=== PATIENT | female | born 1995 | race Caucasian/White ===

== ENCOUNTER 2020-10-09 06:15 | Day surgery (SDC) | payer OTHER ==
[2020-10-09] MEDS ORDERED: LACTATED RINGERS 1,000 ML IV ONE (06:23)
[2020-10-09 06:51] LABS: HCG UR QUAL NEGATIVE
[2020-10-09] MEDS ORDERED: ceFAZolin 2 GM/50 ML 2 GM/50 ML BAG IV ONE (07:03)
[2020-10-09] MEDS ORDERED: HYDROmorphone 0.5 MG/0.5 ML SYRINGE IVP PRN (07:06)
[2020-10-09] MEDS ORDERED: MORPHINE 2 MG/ML CARPUJECT IVP PRN (07:06)
[2020-10-09] MEDS ORDERED: ATROPINE ABBOJECT 1 MG/10 ML SYRINGE IVP PRN (07:06)
[2020-10-09] MEDS ORDERED: NALOXONE 0.4 MG/ML VIAL IVP PRN (07:06)
[2020-10-09] MEDS ORDERED: ePHEDrine 50 MG/ML VIAL IVP PRN (07:06)
[2020-10-09] MEDS ORDERED: METOCLOPRAMIDE 10 MG/2 ML VIAL IVP PRN (07:06)
[2020-10-09] MEDS ORDERED: ONDANSETRON 4 MG/2 ML VIAL IVP PRN ×2 (07:06→09:26)
[2020-10-09] MEDS ORDERED: fentaNYL 100 MCG/2 ML VIAL IVP PRN (07:06)
--- NOTE | 2020-10-09 07:09 | ANESTHESIA ---
Pre-Anesthesia VS, & Labs - Diagnosis Volar Ganglion Cyst - Procedure Left Volar Ganglion Cystectomy Vital Signs: Temp Pulse Resp BP Pulse Ox 36.2 C L 90 12 113/80 97 10/09/20 06:25 10/09/20 06:25 10/09/20 06:25 10/09/20 06:25 10/09/20 06:25 Height: 5 ft 8 in Weight (kg): 61.7 kg Body Mass Index: 20.7 BMI Classification: Healthy weight - NPO >8 hours - Is Patient ?: No Home Medications and Allergies Home Medications: Ambulatory Orders No Known Home Medications 10/06/20 No Known Home Medications 10/06/20 Allergies/Adverse Reactions: Allergies Allergy/AdvReac Type Severity Reaction Status Date / Time No Known Drug Allergies Allergy Verified 10/06/20 14:31 Anes History & Medical History - Anesthetic History Anesthesia Complications: reports: No previous complications Family history of Anesthesia Complications: Denies Family history of Malignant Hyperthermia: Denies - Medical History Cardiovascular: reports: None Pulmonary: reports: None Gastrointestinal: reports: None Urinary: reports: None Neuro: reports: None Musculoskeletal: reports: None, Other Endocrine/Autoimmune: reports: None Blood Disorders: reports: None Skin: reports: None Smoking Status: Never smoker Psychosocial: reports: No issues indicated History of Cancer?: No - Surgical History Eyes Ears Nose Throat (EENT): Tonsil/Adenoidectomy Gynecologic: Tubal ligation, Other Exam General: Alert, Oriented x3, Cooperative, No acute distress Dental: WNL Mouth Openin Fingerbreadth Neck Mobility: Normal Mallampati classification: I Thyromental Distance: 4-6 cm Respiratory: Lungs clear, Normal breath sounds, No respiratory distress, No accessory muscle use Cardiovascular: Regular rate, Normal S1, Normal S2, No murmurs Mental/Cognitive Status: Alert/Oriented X3, Normal for patient Cognitive Status: Within normal limits Plan Anesthesia Type: General Consent for Procedure(s) Verified and Reviewed: Yes Code Status: Attempt Resuscitation ASA classification: 1-Healthy patient Is this case an emergency?: No
[2020-10-09] MEDS ORDERED: KETOROLAC 30 MG/ML VIAL ONE (07:14)
[2020-10-09] MEDS ORDERED: ONDANSETRON 4 MG/2 ML VIAL ONE (07:14)
[2020-10-09] MEDS ORDERED: DEXAMETHASONE 4 MG/ML VIAL ONE (07:14)
[2020-10-09] MEDS ORDERED: PROPOFOL 200 MG/20 ML VIAL IVP ONE (07:14)
[2020-10-09] MEDS ORDERED: MIDAZOLAM 2 MG/2 ML VIAL ONE (07:29)
[2020-10-09] MEDS ORDERED: BUPIVACAINE 0.5% PF 30 ML VIAL ONE (07:35)
[2020-10-09] MEDS ORDERED: LIDOCAINE-MPF 2% 5 ML VIAL ONE (07:35)
[2020-10-09] MEDS ORDERED: BUPIVACAINE 0.5% PF 30 ML VIAL SUBQ ONE ×2 (07:59→09:01)
[2020-10-09] MEDS ORDERED: LACTATED RINGERS 1,000 ML IV SCH (08:00)
[2020-10-09] MEDS ORDERED: oxyCODONE 5 MG TABLET PO PRN (09:26)
[2020-10-09 10:08] VITALS: BP 100/70
[2020-10-09] MEDS ORDERED: oxyCODONE 5 MG TABLET ONE (10:14)
--- NOTE | 2020-10-09 12:58 | ANESTHESIA POST OP EVALUATION ---
Anesthesia Post Eval - Post Anesthesia Eval Vitals: Last Vital Signs Temp 36.2 C L 10/09/20 09:41 Pulse 73 10/09/20 10:08 Resp 15 10/09/20 10:08 BP 100/70 10/09/20 10:08 Pulse Ox 100 10/09/20 10:08 CV Function Including HR & BP: positive: Stable Pain Control: positive: Satisfactory Nausea & Vomiting: positive: Negative Mental Status: positive: Baseline Respiratory Status: Airway Patent Hydration Status: Satisfactory Anesthesia Complications: positive: None
--- NOTE | 2020-10-15 11:34 | OPERATIVE REPORT ---
Operative Report - General Procedure Date: 10/09/20 - Procedure Note Anesthesia Technique: General LMA Estimated Blood Loss (mL): 10 - Other Other Information/Narrative: Date of Procedure: 09 October 2020 Planned Procedure: Left volar wrist mass excision Pre-op diagnosis: Left volar wrist mass, presumed ganglion cyst Procedure performed: Left volar wrist mass excision Post-op diagnosis: Left volar wrist mass consistent with ganglion cyst Primary Surgeon: ERICH PUENTES Secondary Surgeon: Jason Anesthesia: General LMA EBL: 10ml Tourniquet: 44 minutes, left upper arm at 200mmHg. Specimen(s) Information: Excised cyst sent for permanent pathology Complication(s): None Condition: Stable to recovery Indications for Surgery: The patient is a 25-year-old right hand dominant female with a 6 month history of a left volar wrist mass. Exam demonstrated an approximately 1 cm in diameter cyst that was radial to the FCR tendon, well-circumscribed mobile, compressible and clinically consistent with a ganglion cyst. Xrays were normal. MRI was unable to be obtained due to permanent metallic dental hardware, ultrasound demonstrated a cystic mass between the radial artery and the FCR tendon, consistent with a ganglion cyst. The patient was counseled on treatment options to include continued nonoperative treatment in the form of activity modification, versus surgical excision. Risks of surgery were discussed to include bleeding, infection, postoperative wrist stiffness, mass recurrence, damage to nerves, vessels, tendons, ligaments, bone and cartilage and anesthesia complications to include medication side effects and allergic reactions and even . After discussion, she wished to proceed. Findings: Volar wrist ganglion cyst with clear gelatinous fluid Descriptions of Procedure: The patient was met in the Preoperative Holding Area, at which time preoperative paperwork was confirmed. The left volar wrist was signed. The patient was then brought to Main Operating Room, placed supine on the Operating Room table and general anesthesia was induced. The operative extremity was then prepped and draped over a hand table in the normal sterile fashion after a well-padded tourniquet was placed on the proximal arm. A final timeout was conducted to confirm the correct patient, correct extremity and correct procedure and to confirm that antibiotics had been administered within 30 minutes of incision time. The operative extremity was then exsanguinated with an Esmarch bandage and tourniquet inflated to 200mmHg. A curving incision was made starting over the FCR tendon sheath curving radially over the mass and then back ulnarly towards the thenar eminence was marked out and then made sharply through skin only with a 15 blade. Dissection was further carried out with tenotomy scissors. The mass was carefully dissected, taking care to respect the radial artery in close proximity. Once the mass had been freed up down to its stalk, it was transected and cauterized using bipolar electrocautery . The mass contained homogeneous gelatinous material consistent with a ganglion cyst. The mass was then passed off the back table in a sterile specimen cup fixed in formalin. The wound was then copiously irrigated. The tourniquet was let down and pressure was held on the incision for approximately 5 minutes with a moistened Ray-Meena. The radial pulse was palpable, and and the hand pinked up quite nicely with brisk and equal capillary refill in all the fingers. The Ray-Meena was then removed, there was no brisk bleeding observed. Small bleeding points were cauterized with bipolar electrocautery. The wound was again irrigated and then closed with 3-0 Vicryl in buried interrupted fashion, followed by a running 4-0 Monocryl subcuticular. 10 mL of half percent Marcaine plain were injected in the periincisional tissues, and then Mastisol and Steri-Strips were applied. The wound was dressed with Xeroform gauze, followed by 4 x 4 gauze followed by webril and a gently compressive Mayank bandage. The patient was then awakened from general anesthesia without complication, brought to the Post Anesthesia Care for further recovery. Postoperative Plan: 1. The patient will be discharged from the Same Day Surgery Unit when discharge criteria are met. 2. The patient will remain in the dressing until follow-up. She can start gentle wrist range of motion in the dressing on postop day 1. No lifting heavy objects for approximately the first 6 weeks. 3. Expect return to full duty in 4-6 weeks, and he was counseled that he may have wrist stiffness up to 8 weeks postoperatively. 4. Discharge precautions were provided in both verbal and written form to the patient
== END 2020-10-09 06:16 | disposition home or self-care (01) ==
LOC: SDS 06:15
PROVIDERS: ATTEND Orthopaedic Surgery
PROC: 0LB60ZZ Excision of Left Lower Arm and Wrist Tendon, Open Approach (ICD-10-PCS; principal; 2020-10-09 07:30)
DX: M67.432 Ganglion, left wrist (principal)
CPT/HCPCS: 25111; 81025; A9270; J0690; J7120